=== PATIENT | female | born 1995 | race Caucasian/White ===

== ENCOUNTER 2024-05-20 13:44 | Emergency (ER) | payer MEDICAID ==
[~2024-05-20] VITALS: Ht 152.4 cm; Wt 85.0 kg
[2024-05-20 13:56] VITALS: BP 110/73; PULSE 71; RESP 18; TEMP 36.9; O2SAT 99
[2024-05-20 13:58] VITALS: O2SAT 99
[2024-05-20] MEDS: LIDOCAINE HCL 1% 20ML VIAL INFIL ONE (15:20)
[2024-05-20] MEDS: TETANUS, DIPHTHERIA, PERTUSSIS VAC/PF 0.5ML (>10YR OLD) IM ONE (15:25)
[2024-05-20] MEDS ORDERED: CEPH500C2 MT (16:36)
== END 2024-05-20 17:05 | disposition home or self-care (01) ==
LOC: ER 13:44
DX: S61.011A Laceration without foreign body of right thumb without damage to nail, initial encounter (principal); W26.0XXA Contact with knife, initial encounter; Y93.89 Activity, other specified; Y92.89 Other specified places as the place of occurrence of the external cause; Y99.8 Other external cause status
CPT/HCPCS: 99283; 73130; 12001; J3490